=== PATIENT | female | born 1980 | race Caucasian/White ===

== ENCOUNTER 2023-12-10 04:07 | Day surgery (SDC) | payer OTHER ==
[2023-11-30 10:52] VITALS: BMI 27.3
[2023-12-10] MEDS ORDERED: ceFAZolin SODIUM 1 GM VIAL ONE (07:21)
[2023-12-10] MEDS ORDERED: CEFAZOLIN SODIUM 2 GM in DEXTROSE 5%-WATER 100 ML IVPB ONE (08:30)
[2023-12-10] MEDS ORDERED: BUPIVACAINE HCL/PF 0.5% (5MG/ML) 10 ML VIAL ONE (08:40)
[2023-12-10] MEDS ORDERED: MIDAZOLAM HCL 2 MG/2 ML SINGLE DOSE VIAL ONE ×2 (09:14→09:15)
[2023-12-10] MEDS ORDERED: FENTANYL CITRATE/PF 50 MCG/ML VIAL ONE ×7 (09:14→11:30)
[2023-12-10] MEDS ORDERED: PROPOFOL 20 ML ONE (09:14)
[2023-12-10] MEDS ORDERED: LIDOCAINE HCL/PF 2% SDV 5ML VIAL ONE (09:32)
[2023-12-10] MEDS ORDERED: DEXAMETHASONE SOD PHOSPHATE 4 MG/1 ML VIAL ONE (09:46)
[2023-12-10] MEDS ORDERED: ONDANSETRON 4 MG/2 ML VIAL ONE ×2 (09:46→10:30)
[2023-12-10] MEDS ORDERED: GLYCOPYRROLATE 0.2 MG/1 ML VIAL ONE (10:29)
[2023-12-10] MEDS ORDERED: NEOSTIGMINE METHYLSULFATE 0.5 MG/1 ML - 10 ML MDV ONE (10:29)
[2023-12-10] MEDS ORDERED: ONDANSETRON 4 MG/2 ML VIAL IVPUSH PRN (10:52)
[2023-12-10] MEDS ORDERED: LACTATED RINGERS SOLUTION 1,000 ML IV SCH (11:00)
[2023-12-10 12:52] VITALS: RESP 20
[2023-12-10] MEDS ORDERED: oxyCODONE HCL 5 MG TABLET ONE (15:20)
[2023-12-10] MEDS: oxyCODONE HCL 5 MG TABLET PO PRN (15:23)
[2023-12-10 16:58] VITALS: BP 108/68; PULSE 90; TEMP 99
== END 2023-12-10 16:30 | disposition home or self-care (01) ==
LOC: JASU-SURG 04:07
PROVIDERS: ATTEND Obstetrics & Gynecology
PROC: 0UB14ZZ Excision of Left Ovary, Percutaneous Endoscopic Approach (ICD-10-PCS; 2023-12-10)
PROC: 0UT74ZZ Resection of Bilateral Fallopian Tubes, Percutaneous Endoscopic Approach (ICD-10-PCS; principal; 2023-12-10 09:49)
DX: Z30.2 Encounter for sterilization (principal); N83.202 Unspecified ovarian cyst, left side
CPT/HCPCS: 81025; 86850; 86900; 86901; 88305-TC; 94760